=== PATIENT | female | born 1940 | race Caucasian/White ===

== ENCOUNTER 2020-03-22 15:42 | Emergency (ER) | payer OTHER ==
[~2020-03-22] VITALS: Ht 157.5 cm; Wt 86.2 kg
[~2020-03-22 15:42] MED LIST: ADULT LOW DOSE81 MG; ADVAIR 250-501 EACH INH; ADVAIRDISKUS; ALBUTEROL INH; ALBUTEROL INHAL17 GM INH; ALLEGRA30 MG; ALLEGRA30 MG PO; ATENOLOL 100MG100 M2 PO; ATENOLOL 100MG100 MG; AVELOX 400 MG400 MG PO; CALCIUM; CALCIUM OYSTER500 MG PO; CLONIDINE; DIABETA; EFFEXOR XR75 MG; EFFEXOR75 MG PO; FELODIPINE 5 MG5 M1; FELODIPINE 5 MG5 M1 PO; FISH OIL 1,0001 EAC5 PO; FISHOIL; FLEXERIL PO; GLYBURIDE 5 MG T5 M1 PO; HCTZ; HCTZ PO; JANUVIA100 MG PO; JANUVIA25 MG; LISINOPRIL; LISINOPRIL40 MG PO; LOVASTAT20 PO; LOVASTATIN; LYRICA PO; MINIPRIN81 MG PO; NEXIUM; PREDNISONE 10 M10 M1 PO; PRILOSEC 20 MG20 MG PO; VITAMIN D1000 UNI1 PO; VITAMIN D400 UNI1; XANAX 0.25 MG0.25 MG PO
[2020-03-22 16:02] VITALS: BP 147/60
[2020-03-22] MEDS ORDERED: ALENDRONATE SOD35 MG PO (16:04)
[2020-03-22] MEDS ORDERED: ELIQUIS5 MG PO (16:05)
[2020-03-22] MEDS ORDERED: VITAMIN B-121000 MC2 SUBLING (16:07)
[2020-03-22] MEDS ORDERED: DIGOX125 MCG PO (16:07)
[2020-03-22] MEDS ORDERED: PRINIVIL20 M1 PO (16:09)
[2020-03-22] MEDS ORDERED: DOXEPIN PO (16:11)
[2020-03-22] MEDS ORDERED: VITAMIN D250 MCG PO (16:11)
[2020-03-22] MEDS ORDERED: AMARYL2 M1 PO (16:12)
[2020-03-22] MEDS ORDERED: TOPROL XL50 MG PO (16:14)
[2020-03-22] MEDS ORDERED: PRAVACHOL 20 MG20 M1 PO (16:14)
[2020-03-22] MEDS ORDERED: NORCO 5-325 TA1 EAC1 PO (16:28)
[2020-03-22] MEDS ORDERED: FLEXERIL PO (16:28)
== END 2020-03-22 16:50 | disposition home or self-care (01) ==
LOC: M.ERS 15:42
DX: M54.41 Lumbago with sciatica, right side (principal); M47.817 Spondylosis without myelopathy or radiculopathy, lumbosacral region; F41.9 Anxiety disorder, unspecified; R06.02 Shortness of breath; I10 Essential (primary) hypertension; E78.00 Pure hypercholesterolemia, unspecified; E11.9 Type 2 diabetes mellitus without complications; F32.9 Major depressive disorder, single episode, unspecified; Z90.710 Acquired absence of both cervix and uterus; Z88.5 Allergy status to narcotic agent; Z88.8 Allergy status to other drugs, medicaments and biological substances; Z79.82 Long term (current) use of aspirin; Z79.899 Other long term (current) drug therapy

== ENCOUNTER → 2020-06-10 | Outpatient (CLI) | payer OTHER ==
[~2020-06-10] MED LIST changes: +ALENDRONATE SOD35 MG PO; +AMARYL2 M1 PO; +DIGOX125 MCG PO; +DOXEPIN PO; +ELIQUIS5 MG PO; +NORCO 5-325 TA1 EAC1 PO; +PRAVACHOL 20 MG20 M1 PO; +PRINIVIL20 M1 PO; +TOPROL XL50 MG PO; +VITAMIN B-121000 MC2 SUBLING; +VITAMIN D250 MCG PO
== END ==
LOC: M.LAB 06-01 15:27
PROVIDERS: ATTEND Nurse Practitioner Family
DX: N30.90 Cystitis, unspecified without hematuria (principal); K86.89 Other specified diseases of pancreas; I10 Essential (primary) hypertension; E11.65 Type 2 diabetes mellitus with hyperglycemia; E78.2 Mixed hyperlipidemia

== ENCOUNTER 2020-10-08 14:47 | Emergency (ER) | payer OTHER ==
[~2020-10-08] VITALS: Ht 157.5 cm; Wt 81.7 kg
[2020-10-08 17:27] VITALS: BP 168/81
--- NOTE | 2020-10-09 09:03 | EKG ---
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 : 1940 Requested By: Dipti Bustillo Order Number: [id number] Nura MD: Abhishek Haque Measurements Intervals [place] Rate: 75 P: CO: QRS: 28 QRSD: 137 T: 263 QT: 375 QTc: 419 Interpretive Statements Atrial fibrillation Ventricular premature complex Right bundle branch block Repol abnrm suggests ischemia, lateral leads Baseline wander in lead(s) V2 Compared to ECG 02/10/2011 20:15:17 Ventricular premature complex(es) now present Possible ischemia now present Sinus rhythm no longer present Electronically Signed On 10-09-2020 9:03:34 [employer] 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
== END 2020-10-08 17:27 | disposition home or self-care (01) ==
LOC: M.ERS 14:47
DX: S40.012A Contusion of left shoulder, initial encounter (principal); S00.83XA Contusion of other part of head, initial encounter; M25.552 Pain in left hip; E11.9 Type 2 diabetes mellitus without complications; I10 Essential (primary) hypertension; E78.00 Pure hypercholesterolemia, unspecified; I48.91 Unspecified atrial fibrillation; Z90.710 Acquired absence of both cervix and uterus; Z88.5 Allergy status to narcotic agent; Z88.8 Allergy status to other drugs, medicaments and biological substances; X58.XXXA Exposure to other specified factors, initial encounter; Y93.89 Activity, other specified; Y92.89 Other specified places as the place of occurrence of the external cause; Y99.8 Other external cause status

== ENCOUNTER → 2021-01-04 | Outpatient (CLI) | payer OTHER | LOC: M.RAD 16:34 | PROVIDERS: ATTEND Nurse Practitioner Family | DX: Z87.01 Personal history of pneumonia (recurrent) (principal); I70.0 Atherosclerosis of aorta ==

== ENCOUNTER 2021-01-21 20:08 | Emergency (ER) | payer OTHER ==
[~2021-01-21] VITALS: Ht 154.9 cm; Wt 86.2 kg
[2021-01-21] MEDS ORDERED: PROAIR HFA8.5 GM INH (20:33)
[2021-01-21] MEDS ORDERED: ADVAIR 250-501 EACH INH (20:34)
[2021-01-21] MEDS ORDERED: EFFEXOR XR75 MG PO (20:34)
[2021-01-21] MEDS ORDERED: OPTIMAL D31250 MCG PO (20:34)
[2021-01-21] MEDS ORDERED: FELODIPINE ER10 MG PO (20:34)
[2021-01-21] MEDS ORDERED: FISH OIL 1,0001 EAC9 PO (20:34)
[2021-01-21] MEDS ORDERED: DIGOX125 MCG PO (20:35)
[2021-01-21] MEDS ORDERED: B-125000 MC1 SUBLING (20:35)
[2021-01-21] MEDS ORDERED: LISINOPRIL20 MG PO (20:35)
[2021-01-21] MEDS ORDERED: ELIQUIS5 MG PO (20:35)
[2021-01-21] MEDS ORDERED: ALENDRONATE SOD35 MG PO (20:35)
[2021-01-21] MEDS ORDERED: VITAMIN D250 MCG PO (20:36)
[2021-01-21] MEDS ORDERED: PRAVACHOL 20 MG20 M1 PO (20:36)
[2021-01-21] MEDS ORDERED: DOXEPIN 75 MG C75 M1 PO (20:36)
[2021-01-21] MEDS ORDERED: METOPROLOL SUCC50 MG PO (20:37)
[2021-01-21] MEDS ORDERED: KEFLEX500 M1 PO (21:06)
[2021-01-21] MEDS ORDERED: NORCO5 PO (21:06)
[2021-01-21] MEDS ORDERED: HYDROCODON-ACE1 EAC7 PO (21:09)
[2021-01-21] MEDS ORDERED: ONDANSETRON HCL4 M2 PO (21:11)
[2021-01-21 21:46] VITALS: BP 166/74
== END 2021-01-21 21:46 | disposition home or self-care (01) ==
LOC: M.ERS 20:08
DX: M79.675 Pain in left toe(s) (principal); E11.9 Type 2 diabetes mellitus without complications; I48.91 Unspecified atrial fibrillation; I10 Essential (primary) hypertension; E78.00 Pure hypercholesterolemia, unspecified; Z90.710 Acquired absence of both cervix and uterus; Z88.5 Allergy status to narcotic agent; Z88.8 Allergy status to other drugs, medicaments and biological substances

== ENCOUNTER 2021-10-01 21:04 | Emergency (ER) | payer OTHER ==
[~2021-10-01] VITALS: Ht 157.5 cm; Wt 86.6 kg
[~2021-10-01 21:04] MED LIST changes: +B-125000 MC1 SUBLING; +DOXEPIN 75 MG C75 M1 PO; +EFFEXOR XR75 MG PO; +FELODIPINE ER10 MG PO; +FISH OIL 1,0001 EAC9 PO; +HYDROCODON-ACE1 EAC7 PO; +KEFLEX500 M1 PO; +LISINOPRIL20 MG PO; +METOPROLOL SUCC50 MG PO; +NORCO5 PO; +ONDANSETRON HCL4 M2 PO; +OPTIMAL D31250 MCG PO; +PROAIR HFA8.5 GM INH
[2021-10-01] MEDS ORDERED: FLEXERIL PO (21:26)
[2021-10-01] MEDS ORDERED: NEURONTIN100 MG PO (21:27)
[2021-10-01] MEDS ORDERED: AMARYL2 M1 PO (21:27)
[2021-10-01] MEDS ORDERED: METFORMIN HCL500 M3 PO (21:27)
[2021-10-01 21:40] LABS: URINE BILIRUBIN NEGATIVE (Negative); URINE BLOOD 3+ (Negative); URINE GLUCOSE-RANDOM NEGATIVE (Negative); URINE KETONES NEGATIVE (Negative); URINE LEUKOCYTES-REFLEX TRACE (Negative); URINE NITRITE-REFLEX NEGATIVE (Negative); URINE PROTEIN 2+ (Negative); URINE SPECIFIC GRAVITY 1.025 (1.005-1.030); URINE UROBILINOGEN 0.2 E.U./dl (0.2-1.0)
[2021-10-01 21:44] LABS: URINE CLARITY CLOUDY
[2021-10-01 21:45] LABS: URINE COLOR LT RED
[2021-10-01 21:47] LABS: CASTS None Seen /LPF (None Seen); CRYSTALS None Seen /LPF (None Seen); SQUAMOUS NONE SEEN /LPF (0-3); URINE RBC >20 Many /HPF (0-2); URINE WBC-REFLEX 6-15 Few /HPF (0-5)
[2021-10-01 22:07] LABS: ABSOLUTE EOSINOPHILS 0.2 thou/uL (0.0-0.7); ABSOLUTE LYMPHOCYTES 1.9 thou/uL (0.8-5.3); ABSOLUTE MONOCYTES 1.1 thou/uL (0.0-1.2); EOSINOPHILS 1.7 %; MONOCYTES 9.3 %; NUCLEATED RBCS 0 /100WBC
[2021-10-01 22:09] LABS: ABSOLUTE BASOPHILS 0.1 thou/uL (0.0-0.2); ABSOLUTE NEUTROPHILS 8.5 thou/uL (1.6-8.1); BASOPHILS 0.5 %; CALCIUM 9.5 mg/dL (8.5-10.1); CREATININE 0.9 mg/dL (0.6-1.3); HEMATOCRIT 42.8 % (37.0-47.0); MCH 30.4 pg (26.0-34.0); MCHC 32.6 g/dL (28.0-37.0); MCV 93.3 fL (80.0-100.0); MPV 8.9 fl. (7.2-11.1); PLATELET COUNT* 256 thou/uL (150-400); POLYS 72.5 %; POTASSIUM 3.9 mmol/L (3.5-5.1); RBC 4.59 mil/uL (4.20-5.00); RDW-CV 13.9 % (10.5-14.5); WBC 11.7 thou/uL (4.0-11.0)
[2021-10-02] MEDS ORDERED: AUGMENTIN 500-1 EACH PO (01:12)
[2021-10-02] MEDS ORDERED: ZOFRAN ODT4 MG PO (01:13)
[2021-10-02 01:35] VITALS: BP 159/63
== END 2021-10-02 01:35 | disposition home or self-care (01) ==
LOC: M.ERS 21:04
PROVIDERS: Personal Emergency Response Attendant
DX: N39.0 Urinary tract infection, site not specified (principal); I16.0 Hypertensive urgency; E11.9 Type 2 diabetes mellitus without complications; E78.00 Pure hypercholesterolemia, unspecified; F32.9 Major depressive disorder, single episode, unspecified; Z90.710 Acquired absence of both cervix and uterus; Z79.899 Other long term (current) drug therapy; Z88.5 Allergy status to narcotic agent; Z88.6 Allergy status to analgesic agent